=== PATIENT | female | born 1995 | race Caucasian/White ===

== ENCOUNTER 2016-07-05 00:10 | Emergency (ER) | payer OTHER ==
[2016-07-05 00:16] VITALS: TEMP 97.9
--- NOTE | 2016-07-05 00:45 | XR ---
EXAMINATION TYPE: XR foot complete RT DATE OF EXAM: 07/05/2016 12:39 AM COMPARISON: NONE HISTORY: Slipped on the ice TECHNIQUE: 3 views FINDINGS: I see no fracture nor dislocation. Joint spaces are normal. Metatarsals are intact. IMPRESSION: Negative right foot exam.
--- NOTE | 2016-07-05 00:48 | XR ---
EXAMINATION TYPE: XR ankle complete RT DATE OF EXAM: 07/05/2016 12:38 AM COMPARISON: NONE HISTORY: Pain TECHNIQUE: 3 views FINDINGS: There is a nondisplaced oblique fracture of the distal fibula. There is lateral soft tissue swelling. Joint spaces are normal. IMPRESSION: Acute nondisplaced fracture of distal fibula.
--- NOTE | 2016-07-05 01:17 | ED ---
Lower Extremity Injury HPI - General Chief Complaint: Extremity Injury, Lower Stated Complaint: R Foot Injury Time Seen by Provider: 07/05/16 00:30 Source: patient, RN notes reviewed Mode of arrival: wheelchair Limitations: no limitations - History of Present Illness Initial Comments: Patient is a 21-year-old female presents to the emergency room for evaluation of right ankle pain. Patient states a few hours ago she was walking outside and slipped on ice twisting her right ankle. Patient states having 9 out of 10 pain on lateral side of her ankle. Patient states her ankle began to swell. Patient states the pain is not going away and she is unable to put weight on her right foot because of pain. Patient denies any other injuries during incident. Patient denies any prior injuries to this ankle. Patient denies any numbness or tingling in her toes. - Related Data Home Medications Medication Instructions Recorded Confirmed Lurasidone [Latuda] 1 tab PO DAILY 07/05/16 07/05/16 Previous Rx's Medication Instructions Recorded Ibuprofen [Motrin] 600 mg PO Q6HR PRN #20 tab 07/05/16 Allergies Allergy/AdvReac Type Severity Reaction Status Date / Time No Known Allergies Allergy Verified 07/05/16 00:16 Review of Systems ROS Statement: Those systems with pertinent positive or pertinent negative responses have been documented in the HPI. ROS Other: All systems not noted in ROS Statement are negative. Past Medical History Past Medical History: No Reported History Past Surgical History: No Surgical Hx Reported Smoking Status: Current every day smoker Past Alcohol Use History: Occasional Past Drug Use History: Marijuana General Exam - General Exam Comments Initial Comments: Sitting in exam room in no acute distress. Limitations: no limitations General appearance: alert, in no apparent distress Head exam: Present: atraumatic, normocephalic, normal inspection Eye exam: Present: normal appearance ENT exam: Present: normal exam Neck exam: Present: normal inspection Respiratory exam: Absent: respiratory distress Right Ankle exam: Present: tenderness (Lateral malleolus), swelling (Lateral malleolus ). Absent: full ROM (Limited flexion and extension secondary to pain) Foot/Toe exam: Present: normal inspection, full ROM. Absent: tenderness Neurovascular tendon exam: Absent: pulse deficit (2+ dorsal pedal and posterior tibial pulses), abnormal cap refill (Capillary refill less than 2 seconds) Back exam: Present: normal inspection Neurological exam: Present: alert, oriented X3 Psychiatric exam: Present: normal affect, normal mood Skin exam: Present: warm, dry, intact, normal color. Absent: rash Course Vital Signs 07/05/16 07/05/16 00:15 01:27 Temperature 97.9 F Pulse Rate 114 H 81 Respiratory 20 16 Rate Blood Pressure 121/79 116/74 O2 Sat by Pulse 98 98 Oximetry Procedures - Orthopedic Splinting/Casting Injury #1 Side: right Lower Extremity Injury Location: ankle Lower Extremity Immobilizer: posterior splint (Posterior OCL splint placed. 3 x 35 inches. Neurovascular function assessed and intact.) Other Orthopedic Equipment: crutches Medical Decision Making - Medical Decision Making Patient is a 21-year-old female presents to the emergency room for evaluation of right ankle pain and swelling. Right ankle x-ray shows a distal fibular fracture. Patient placed in an OCL splint and advised to follow-up with cardiovascular invasive specialist. Patient was given crutches. Patient states she understands everything that was discussed with her. Return parameters discussed. Case discussed with Dr. Regalado. - Radiology Data Radiology results: report reviewed, image reviewed Disposition Clinical Impression: Closed fracture of right distal fibula Disposition: HOME SELF-CARE Condition: Good Instructions: Ankle Fracture (ED) Additional Instructions: Rest, elevate and ice on and off for 10-15 minutes for the next 24-48 hours. Do not get splint wet. Do not remove splint until follow-up with cardiovascular invasive specialist. Please follow-up with cardiovascular invasive specialist in 24-48 hours. Alternate Tylenol and Motrin for pain. If new symptoms develop or symptoms worsen, please return to the ER. Prescriptions: Ibuprofen [Motrin] 600 mg PO Q6HR PRN #20 tab PRN Reason: Pain Referrals: Marizol Chamorro MD [Primary Care Provider] - 1-2 days Willis Easley MD [STAFF PHYSICIAN] - 1-2 days Time of Disposition: 01:12
[2016-07-05 01:28] VITALS: BP 116/74; PULSE 81; RESP 16
== END 2016-07-05 01:28 | disposition home or self-care (01) ==
LOC: EC 00:10
DX: S82.831A Other fracture of upper and lower end of right fibula, initial encounter for closed fracture (principal); X50.1XXA Overexertion from prolonged static or awkward postures, initial encounter; W18.49XA Other slipping, tripping and stumbling without falling, initial encounter; Y93.01 Activity, walking, marching and hiking; Z79.899 Other long term (current) drug therapy; F17.200 Nicotine dependence, unspecified, uncomplicated
CPT/HCPCS: 29515; 99283